=== PATIENT | female | born 1965 | race Caucasian/White ===

== ENCOUNTER 2022-12-01 14:46 | Emergency (ER) | payer OTHER ==
[2022-12-01 14:58] VITALS: BP 138/88
[2022-12-01 15:05] LABS: BILIRUBIN,URINE NEGATIVE (NEGATIVE); GLUCOSE, URINE (UA) NEGATIVE (NEGATIVE); KETONES,URINE (UA) NEGATIVE (NEGATIVE); LEUKOCYTE ESTERASE, URINE SMALL (NEGATIVE); NITRITE,URINE NEGATIVE (NEGATIVE); OCCULT BLOOD,URINE MODERATE (NEGATIVE); PROTEIN,URINE NEGATIVE (NEGATIVE); UROBILINOGEN,URINE 0.2 (NORMAL) E.U./dL (NORMAL)
--- NOTE | 2022-12-01 15:05 | ED Physician Documentation ---
History of Present Illness - Stated complaint Stated Complaint: FEMALE - Chief complaint Chief Complaint: General - Additonal information Additional information: 57-year-old female presents emergency department for evaluation of 24 hours of dysuria urgency frequency and burning. States that this feels like urinary tract infections in the past. States she used to have recurrent UTIs but has not had one now for about a year. This does follow recent sexual intercourse. Denies receiving the rectal intercourse. No fevers or vomiting. Review of Systems Constitutional: denies: Fever Throat: reports: Reviewed and negative Cardiac: reports: Reviewed and negative GI: reports: Reviewed and negative : reports: Dysuria, Frequency. denies: Hematuria Skin: reports: Reviewed and negative Musculoskeletal: reports: Reviewed and negative PD PAST MEDICAL HISTORY - Present Medications Home Medications: Ambulatory Orders Medication Instructions Recorded Confirmed Phenazopyridine HCl [Pyridium] 200 mg PO TID PRN #6 tablet 12/01/22 cephALEXin [Keflex] 500 mg PO BID #14 cap 12/01/22 - Allergies Allergies/Adverse Reactions: Allergies Allergy/AdvReac Type Severity Reaction Status Date / Time No Known Drug Allergies Allergy Verified 12/01/22 14:59 PD ED PE NORMAL - General General: Alert and oriented X 3, No acute distress - HEENT HEENT: PERRL - Neck Neck: Supple, no meningeal sign, No adenopathy - Cardiac Cardiac: RRR, No murmur - Respiratory Respiratory: No respiratory distress, Clear bilaterally - Abdomen Abdomen: Normal bowel sounds, Soft. No: Non tender (Mild suprapubic tenderness without flank or CVA tenderness. Nonperitoneal. No guarding or rebound.) - Back Back: No CVA TTP Results - Vitals Vitals: Vital Signs - 24 hr 12/01/22 14:54 Temperature 36.3 C L Heart Rate 68 Respiratory 18 Rate Blood Pressure 138/88 H O2 Saturation 97 Oxygen O2 Source Room air - Labs Labs: Laboratory Tests 12/01/22 14:48 Urine Color YELLOW Urine Clarity HAZY Urine pH 6.0 Ur Specific [place] 1.025 Urine Protein NEGATIVE Urine Glucose (UA) NEGATIVE Urine Ketones NEGATIVE Urine Occult Blood MODERATE H Urine Nitrite NEGATIVE Urine Bilirubin NEGATIVE Urine Urobilinogen 0.2 (NORMAL) Ur Leukocyte Esterase SMALL H Urine RBC 6-10 H Urine WBC 11-25 H Ur Squamous Epith Cells NONE SEEN Urine Bacteria Few Ur Microscopic Review INDICATED Urine Culture Comments INDICATED PD Medical Decision Making - ED course Complexity details: reviewed results, re-evaluated patient, considered differential, d/w patient ED course: 57-year-old female presents to the emergency department for evaluation of cute onset dysuria urgency and frequency that began yesterday. Did have recent sexual intercourse. Reports a history of UTIs in the past similar to this. Though none for at least 1 year. Clinically on exam she has mild tenderness over the suprapubic region. No guarding or rebound. Her urinalysis is consistent with acute cystitis. Patient will be started on Keflex. Given Pyridium and keflex here in the ER. Clinically I have low suspicion for a sending cystitis or acute [place] given lack of fevers flank pain or vomiting. The usual emergent return precautions were discussed for worsening symptoms. Departure - Departure Disposition: Home, Self Care Clinical Impression: Acute cystitis Qualifiers: Hematuria presence: without hematuria Qualified Code(s): N30.00 - Acute cystitis without hematuria Condition: Stable Record reviewed to determine appropriate education?: Yes Instructions: ED UTI Cystitis Female Prescriptions: cephALEXin [Keflex] 500 mg PO BID #14 cap Phenazopyridine HCl [Pyridium] 200 mg PO TID PRN #6 tablet PRN Reason: dysuria Comments: Drew your urinalysis is consistent with an acute infection. You were given your first dose of Keflex here in the ER. I sent a prescription for Keflex the antibiotic with you will take twice a day for the next week to [place]. I also sent a prescription for Pyridium, this is a medication that helps reduce bladder spasm and discomfort. It will cause your urine to turn bright orange. With these medications I would expect improved symptoms over the next 48 to 72 hours. If you find that your symptoms are worsening, you develop fevers back pain or have vomiting then please return to the ER for second evaluation.
[2022-12-01 15:07] LABS: CLARITY,URINE HAZY (CLEAR)
[2022-12-01 15:19] LABS: BACTERIA,URINE Few /HPF (None Seen); SQUAMOUS EPITHELIAL CELL,UR NONE SEEN (<= Few)
[2022-12-01] MEDS ORDERED: PHENAZOPYRIDINE 100 MG TABLET PO STA (15:43)
[2022-12-01] MEDS ORDERED: cephALEXin 250 MG CAPSULE PO STA (15:49)
== END 2022-12-01 16:04 | disposition home or self-care (01) ==
LOC: ED 14:46
DX: N30.00 Acute cystitis without hematuria (principal)
CPT/HCPCS: 81001; 87086; 99283; A9270; 81003

== ENCOUNTER 2023-08-12 09:00 | Outpatient (CLI) | payer OTHER | END 2023-08-12 09:15 | disposition home or self-care (01) | LOC: LAB.N 09:00 | PROVIDERS: ATTEND Nurse Practitioner | DX: R30.0 Dysuria (principal) | CPT/HCPCS: 87086; 87181 ==